=== PATIENT | female | born 1970 | race Caucasian/White ===

== ENCOUNTER 2016-12-21 07:04 | Emergency (ER) | payer OTHER ==
[~2016-12-21] VITALS: Ht 167.6 cm; Wt 63.0 kg
[~2016-12-21 07:04] MED LIST: CEFTIN250 MG PO; CIPRO500 MG PO; DILAUDID2 MG PO; TRAMADOL HCL50 MG PO; ZOFRAN8 MG PO
[2016-12-21 09:52] LABS: ADD MIUA? YES; BILIRUBIN NEGATIVE; BLOOD MODERATE; COLOR YELLOW ((YELLOW)); GLUCOSE (STRIP) NEGATIVE; KETONES NEGATIVE; LEUKOCYTES SMALL; NITRITE NEGATIVE; PROTEIN (STRIP) NEGATIVE; SPECIFIC GRAVITY 1.018 (1.000-1.030); UROBILINOGEN 0.2 MG/DL (0.2-1.0)
[2016-12-21 09:57] LABS: BACTERIA NONE SEEN /HPF; EPITHELIAL CELLS RARE /HPF; MUCUS TRACE /LPF; RED BLOOD CELLS 40-50 /HPF (0-5); WHITE BLOOD CELLS 40-50 /HPF (0-5)
[2016-12-21] MEDS ORDERED: CIPRO500 MG PO (11:21)
[2016-12-21] MEDS ORDERED: FLOMAX0.4 MG PO (11:21)
[2016-12-21] MEDS ORDERED: NORCO 5/3251 TABLET PO (11:21)
[2016-12-21 11:44] VITALS: BP 112/67
[2016-12-25] MEDS ORDERED: CIPRO500 MG PO (14:16)
[2016-12-25] MEDS ORDERED: HYDROCODON-ACE1 EAC7 PO (14:17)
== END 2016-12-21 11:53 | disposition home or self-care (01) ==
LOC: EME 07:04
PROVIDERS: Physician Assistant
DX: N20.0 Calculus of kidney (principal)
CPT/HCPCS: 74000; 76770; 81003; 99281; 99284

== ENCOUNTER 2016-12-28 09:39 | Day surgery (SDC) | payer OTHER ==
[~2016-12-28] VITALS: Ht 170.2 cm; Wt 62.7 kg
[~2016-12-28 09:39] MED LIST changes: +FLOMAX0.4 MG PO; +HYDROCODON-ACE1 EAC7 PO; +NORCO 5/3251 TABLET PO
[2016-12-28 10:43] VITALS: BP 110/68
[2016-12-28] MEDS ORDERED: MOTRIN800 MG PO (13:03)
[2016-12-28 15:00] VITALS: BP 125/66
[2016-12-28 16:07] VITALS: BP 117/79
== END 2016-12-28 16:38 | disposition home or self-care (01) ==
LOC: SDC 09:39
PROC: 0TUC0JZ Supplement Bladder Neck with Synthetic Substitute, Open Approach (ICD-10-PCS; principal; 2016-12-28)
DX: N39.3 Stress incontinence (female) (male) (principal); F10.20 Alcohol dependence, uncomplicated
CPT/HCPCS: J0690; J1100; J1170; J1885; J2250; J2405; J3010

== ENCOUNTER 2017-07-26 11:30 | Emergency (ER) | payer OTHER ==
[~2017-07-26] VITALS: Ht 170.2 cm; Wt 67.6 kg
[~2017-07-26 11:30] MED LIST changes: +MOTRIN800 MG PO
[2017-07-26 12:23] LABS: HEMATOCRIT 40.8 % (36.0-46.0); MCH 32.1 PG (29.0-34.0); MCHC 33.6 G/DL (30.0-36.0); MCV 95.6 FL (83-99); MEAN PLAT.VOLUME 9.9 uM^3 (9.5-12.4); PLATELET COUNT 280 K/uL (156-360); RBC DIS.WIDTH-CV 12.4 % (11.8-14.6); RBC DIS.WIDTH-SD 43.6 % (39-53); RED BLOOD COUNT 4.27 M/uL (3.80-5.20); WHITE BLOOD COUNT 12.6 K/uL (4.1-10.2)
[2017-07-26 12:30] LABS: CHLORIDE 108 mEq/L (99-109); POTASSIUM 4.1 mEq/L (3.7-5.4); SODIUM 140 mEq/L (136-147)
[2017-07-26 12:33] LABS: GLUCOSE 104 mg/dL (70-99)
[2017-07-26 12:34] LABS: ANION GAP 8 MEQ/L (2-14)
[2017-07-26 12:35] LABS: TOTAL BILIRUBIN 0.4 mg/dL (0.0-1.0)
[2017-07-26 12:36] LABS: ALKALINE PHOSPHATASE 102 IU/L (3-129); GFR ESTIMATE (CALCULATED) > 59 mL/min/
[2017-07-26 12:37] LABS: UREA NITROGEN (BUN) 17 mg/dL (9-23)
[2017-07-26 12:40] LABS: LIPASE 15 U/L (1.0-51.0)
[2017-07-26 12:48] LABS: QUANTITATIVE HCG < 4.0 MIU/ML
[2017-07-26 13:50] LABS: ADD MIUA? YES; BILIRUBIN NEGATIVE; BLOOD LARGE; COLOR YELLOW ((YELLOW)); GLUCOSE (STRIP) NEGATIVE; KETONES NEGATIVE; LEUKOCYTES LARGE; NITRITE NEGATIVE; PROTEIN (STRIP) NEGATIVE; SPECIFIC GRAVITY 1.018 (1.000-1.030); UROBILINOGEN 0.2 MG/DL (0.2-1.0)
[2017-07-26 14:01] LABS: BACTERIA RARE /HPF; EPITHELIAL CELLS 1+ /HPF; MUCUS TRACE /LPF; RED BLOOD CELLS TNTC /HPF (0-5); UCUL ADDED? YES; WHITE BLOOD CELLS TNTC /HPF (0-5)
[2017-07-26] MEDS ORDERED: ULTRAM50 MG PO (14:48)
[2017-07-26] MEDS ORDERED: KEFLEX500 MG PO (14:48)
[2017-07-26] MEDS ORDERED: ZOFRAN ODT4 MG PO (14:48)
[2017-07-26 16:08] VITALS: BP 143/92
== END 2017-07-26 16:10 | disposition home or self-care (01) ==
LOC: EME 11:30
DX: N12 Tubulo-interstitial nephritis, not specified as acute or chronic (principal); Z87.442 Personal history of urinary calculi; F17.200 Nicotine dependence, unspecified, uncomplicated
CPT/HCPCS: 74176; 80053; 81003; 83690; 84702; 85027; 87086; 99281; 99285; J0696; J1885; J7050

== ENCOUNTER 2017-08-14 11:29 | Emergency (ER) | payer OTHER ==
[~2017-08-14] VITALS: Ht 170.2 cm; Wt 63.2 kg
[~2017-08-14 11:29] MED LIST changes: +KEFLEX500 MG PO; +ULTRAM50 MG PO; +ZOFRAN ODT4 MG PO
[2017-08-14 13:16] LABS: MCH 32.1 PG (29.0-34.0); MCHC 33.9 G/DL (30.0-36.0); MCV 94.5 FL (83-99); PLATELET COUNT 204 K/uL (156-360); RBC DIS.WIDTH-CV 12.4 % (11.8-14.6); RBC DIS.WIDTH-SD 43.5 % (39-53); RED BLOOD COUNT 4.02 M/uL (3.80-5.20); WHITE BLOOD COUNT 9.8 K/uL (4.1-10.2)
[2017-08-14 13:25] LABS: CHLORIDE 103 mEq/L (99-109); POTASSIUM 3.9 mEq/L (3.7-5.4); SODIUM 139 mEq/L (136-147)
[2017-08-14 13:27] LABS: GLUCOSE 106 mg/dL (70-99)
[2017-08-14 13:28] LABS: ANION GAP 12 MEQ/L (2-14)
[2017-08-14 13:31] LABS: GFR ESTIMATE (CALCULATED) > 59 mL/min/; UREA NITROGEN (BUN) 14 mg/dL (9-23)
[2017-08-14 14:08] VITALS: BP 112/73
== END 2017-08-14 14:09 | disposition home or self-care (01) ==
LOC: EME 11:29
PROVIDERS: Emergency Medicine
DX: R11.2 Nausea with vomiting, unspecified (principal); R10.30 Lower abdominal pain, unspecified; Z02.79 Encounter for issue of other medical certificate; Z87.440 Personal history of urinary (tract) infections; Z87.442 Personal history of urinary calculi; F17.200 Nicotine dependence, unspecified, uncomplicated
CPT/HCPCS: 80048; 85027; 99281; 99284; J2405; J7030